=== PATIENT | female | born 1950 | race Caucasian/White ===

== ENCOUNTER 2019-08-16 13:30 | Emergency (ER) | payer OTHER, MEDICAID ==
[~2019-08-16] VITALS: Ht 146.1 cm; Wt 72.1 kg
[2019-08-16 13:52] VITALS: BP 140/67
--- NOTE | 2019-08-16 13:57 | NUR ---
AMB TO BED 04 WITH STEADY GAIT
--- NOTE | 2019-08-16 13:59 | NUR ---
69/F BIB SELF C/O COUGH, RUNNY NOSE, CHILLS, SORE THROAT 8/10. ALSO PAIN IN CHEST/RIBS, BACK WORSEN WHEN COUGHING. HX- DM, HTN, HYPERCHOL. PATIENT STATES PAIN OF 8/10 AT THIS TIME. PATIENT POSITIONED FOR COMFORT; HOB ELEVATED; BEDRAILS UP X1; BED DOWN. ER MD MADE AWARE OF PT STATUS.
--- NOTE | 2019-08-16 14:11 | NUR ---
Patient being evaluated by DR GARCIA at bedside.
[2019-08-16 14:49] VITALS: BP 121/73
--- NOTE | 2019-08-16 14:49 | NUR ---
Patient discharged with v/s stable. Written and verbal after care instructions given and explained. Patient alert, oriented and verbalized understanding of instructions. Ambulatory with steady gait. All questions addressed prior to discharge. ID band removed. Patient advised to follow up with PMD. Rx of PREDNISONE & MOTRIN given. Patient educated on indication of medication including possible reaction and side effects. Opportunity to ask questions provided and answered.
== END 2019-08-16 14:49 | disposition home or self-care (01) ==
LOC: MED 13:30
DX: R05 Cough (principal); I10 Essential (primary) hypertension; Z90.49 Acquired absence of other specified parts of digestive tract; Z98.890 Other specified postprocedural states
CPT/HCPCS: 99283

== ENCOUNTER 2020-03-04 09:56 | Emergency (ER) | payer OTHER, MEDICAID ==
[~2020-03-04] VITALS: Ht 149.9 cm; Wt 24.0 kg
[2020-03-04 10:06] VITALS: BP 115/53
--- NOTE | 2020-03-04 10:13 | NUR ---
69/F BIB SELF C/O COUGH,FEVER, CHEST PAIN WHILE COUGHING X 2 DAYS. MED HX: HTN, GALL BLADDER REMOVAL, OVARIAN SURGERY. AAOX4 WITH EVEN AND STEADY GAIT; LUNGS CLEAR BL; HR EVEN AND REGULAR; PATIENT STATES PAIN OF 10/10 AT THIS TIME; VSS; PATIENT POSITIONED FOR COMFORT; HOB ELEVATED; BEDRAILS UP X2; BED DOWN. ER MD MADE AWARE OF PT STATUS.
--- NOTE | 2020-03-04 10:20 | NUR ---
ERMD EVALUATING PT
--- NOTE | 2020-03-04 10:25 | NUR ---
COVID SWAB DONE.
[2020-03-04 11:30] VITALS: BP 115/53
[2020-03-05] MEDS ORDERED: LISI10TA11 PO (23:27)
== END 2020-03-04 11:30 | disposition home or self-care (01) ==
LOC: MED 09:56
DX: J18.9 Pneumonia, unspecified organism (principal); Z20.828 Contact with and (suspected) exposure to other viral communicable diseases; I10 Essential (primary) hypertension
CPT/HCPCS: 71045; 99284; U0003; 36600; 82803